=== PATIENT | male | born 1970 | race Caucasian/White ===

== ENCOUNTER 2017-03-31 | Observation (INO) | payer BC, OTHER ==
[2017-03-31] MEDS ORDERED: Sodium Chloride 0.9% 10 ML Syringe FLUSH PRN (00:06)
[2017-03-31] MEDS ORDERED: Famotidine 20 MG/2 ML SDV IVPUSH ONE (00:06)
[2017-03-31] MEDS ORDERED: Alum Hydrox/Mag Hydrox/Simeth 15 ML, Metoclopramide 5 MG, Lidocaine 2% 5 ML PO ONE ×3 (00:06)
[2017-03-31] MEDS ORDERED: Sodium Chloride 0.9% 2.5 ML Syringe FLUSH PRN (00:06)
[2017-03-31] MEDS ORDERED: Aspirin 81 MG Tab.Chew PO ONE (00:06)
[2017-03-31] MEDS ORDERED: Ketorolac 30 MG/ML SDV IVPUSH ONE (00:06)
--- NOTE | 2017-03-31 00:16 | EDM.PDOC ---
<TaqueriaronnaAvtar - Last Filed: 03/31/17 00:11> ED HISTORY OF PRESENT ILLNESS - General Stated Complaint: BACK/CHEST PAIN Time Seen by Provider: 03/31/17 01:02 - Related Data Allergies/ADRs: Allergies Allergy/AdvReac Type Severity Reaction Status Date / Time No Known Allergies Allergy Verified 03/31/17 00:19 Home Meds: Home Meds Bp Med 07/06/16 [History] Past Medical History Cardiovascular History: Reports: Hypertension - Infectious Disease History Infectious Disease History: Reports: MRSA - Past Surgical History Musculoskeletal Surgical History: Reports: Other (see below) Other Musculoskeletal Surgeries/Procedures:: 11 surgeries to left hand after crush injury Social & Family History - Family History Family Medical History: Noncontributory - Tobacco Use Smoking Status *Q: Current Every Day Smoker Years of Tobacco use: 25 Packs/Tins Daily: 1 - Recreational Drug Use Recreational Drug Use: No Course - Vital Signs Last Recorded V/S: Last Vital Signs Temp 37.2 C 03/31/17 00:50 Pulse 78 03/31/17 00:50 Resp 16 03/31/17 00:50 BP 121/84 03/31/17 00:50 Pulse Ox 97 03/31/17 00:50 - Orders/Labs/Meds Orders: Active Orders 24 hr Category Date Time Status Cardiac Monitoring [RC] . DIRECTED Care 03/31/17 00:06 Active EKG Documentation Completion [RC] STAT Care 03/31/17 00:06 Active Chest 2V [CR] Stat Exams 03/31/17 00:06 Ordered AMYLASE [CHEM] Stat Lab 03/31/17 00:25 Received COMPREHENSIVE METABOLIC PN,CMP [CHEM] Stat Lab 03/31/17 00:25 Received LIPASE [CHEM] Stat Lab 03/31/17 00:25 Received Sodium Chloride 0.9% [Saline Flush] Med 03/31/17 00:06 Active 10 ml FLUSH ASDIRECTED PRN Sodium Chloride 0.9% [Saline Flush] Med 03/31/17 00:06 Active 2.5 ml FLUSH ASDIRECTED PRN Saline Lock Insert [OM.PC] Stat Oth 03/31/17 00:06 Ordered Medication Orders Sodium Chloride (Saline Flush) 10 ml FLUSH ASDIRECTED PRN PRN Reason: Keep Vein Open Sodium Chloride (Saline Flush) 2.5 ml FLUSH ASDIRECTED PRN PRN Reason: Keep Vein Open Labs: Laboratory Tests 03/31/17 03/31/17 03/31/17 Range/Units 00:25 00:25 00:25 WBC 11.95 H (4.0-11.0) K/uL RBC 5.06 (4.50-5.90) M/uL Hgb 15.9 (13.0-17.0) g/dL Hct 46.5 (38.0-50.0) % MCV 91.9 (80.0-98.0) fL MCH 31.4 (27.0-32.0) pg MCHC 34.2 (31.0-37.0) g/dL RDW Std Deviation 44.1 (28.0-62.0) fl RDW Coeff of Earl 13 (11.0-15.0) % Plt Count 263 (150-400) K/uL MPV 10.90 (7.40-12.00) fL Neut % (Auto) 72.5 (48.0-80.0) % Lymph % (Auto) 19.7 (16.0-40.0) % Page % (Auto) 6.7 (0.0-15.0) % Eos % (Auto) 0.9 (0.0-7.0) % Baso % (Auto) 0.2 (0.0-1.5) % Neut # (Auto) 8.7 H (1.4-5.7) K/uL Lymph # (Auto) 2.4 (0.6-2.4) K/uL Page # (Auto) 0.8 (0.0-0.8) K/uL Eos # (Auto) 0.1 (0.0-0.7) K/uL Baso # (Auto) 0.0 (0.0-0.1) K/uL Nucleated RBC % 0.0 /100WBC Nucleated RBCs # 0 K/uL INR 1.00 (0.86-1.11) Troponin I < 0.10 (0.0-0.29) NG/ML Meds: Medications Generic Name Dose Route Start Last Admin Trade Name Freq PRN Reason Stop Dose Admin Sodium Chloride 10 ml 03/31/17 00:06 Saline Flush FLUSH ASDIRECTED PRN Keep Vein Open Sodium Chloride 2.5 ml 03/31/17 00:06 Saline Flush FLUSH ASDIRECTED PRN Keep Vein Open Discontinued Medications Generic Name Dose Route Start Last Admin Trade Name Marry PRN Reason Stop Dose Admin Aspirin 324 mg 03/31/17 00:06 03/31/17 00:30 Aspirin PO 03/31/17 00:07 324 mg ONETIME ONE Administration Al Hydroxide/Mg Hydroxide 15 0 ml 03/31/17 00:06 03/31/17 00:49 ml/ Metoclopramide HCl 5 mg/ PO 03/31/17 00:07 1 each Lidocaine HCl 5 ml ONETIME ONE Administration Famotidine 20 mg 03/31/17 00:06 03/31/17 00:43 Pepcid IVPUSH 03/31/17 00:07 20 mg ONETIME ONE Administration Ketorolac Tromethamine 30 mg 03/31/17 00:06 03/31/17 00:28 Toradol IVPUSH 03/31/17 00:07 30 mg ONETIME ONE Administration Lidocaine HCl Confirm 03/31/17 00:34 Xylocaine 2% Viscous Administered 03/31/17 00:35 Dose 15 ml .ROUTE .STK-MED ONE Morphine Sulfate 2 mg 03/31/17 00:21 03/31/17 00:41 Morphine IVPUSH 03/31/17 00:22 2 mg ONETIME ONE Administration Nitroglycerin 0.4 mg 03/31/17 00:17 03/31/17 00:32 Nitrostat SL 03/31/17 00:28 0.4 mg Q5M PRN Administration Chest Pain Ondansetron HCl 4 mg 03/31/17 00:21 03/31/17 00:37 Zofran IVPUSH 03/31/17 00:22 4 mg ONETIME ONE Administration Departure - Departure Disposition: Refer to Observation Clinical Impression: Chest pain <Jonathan Smalls - Last Filed: 03/31/17 01:03> ED HISTORY OF PRESENT ILLNESS - History of Present Illness INITIAL COMMENTS - FREE TEXT/NARRATIVE: HISTORY AND PHYSICAL: History of present illness: Patient 46-year-old white male that since her chest and upper back pain x2 days he states that the shortness of breath he denies palpitations nausea vomiting or diaphoresis. Review of systems: As per history of present illness and below otherwise all systems reviewed and negative. Past medical history: As per history of present illness and as reviewed below otherwise noncontributory. Surgical history: As per history of present illness and as reviewed below otherwise noncontributory. Social history: No reported history of drug or alcohol abuse. Family history: As per history of present illness and as reviewed below otherwise noncontributory. Physical exam: HEENT: Atraumatic, normocephalic, pupils reactive, negative for conjunctival pallor or scleral icterus, mucous membranes moist, throat clear, neck supple, nontender, trachea midline. Lungs: Clear to auscultation, breath sounds equal bilaterally, chest nontender. Heart: S1S2, regular, negative for clicks, rubs, or JVD. Abdomen: Soft, nondistended, nontender. Negative for masses or hepatosplenomegaly. Negative for costovertebral tenderness. Pelvis: Stable nontender. Genitourinary: Deferred. Rectal: Deferred. Extremities: Atraumatic, negative for cords or calf pain. Neurovascular unremarkable. Neuro: Awake, alert, oriented. Cranial nerves II through XII unremarkable. Cerebellum unremarkable. Motor and sensory unremarkable throughout. Exam nonfocal. Diagnostics: CBC CMP troponin PT INR chest x-ray EKG Therapeutics: IV O2 monitor aspirin 324 mg by mouth nitroglycerin glycerin as directed Impression: #1 chest pain Definitive disposition and diagnosis as appropriate pending reevaluation and review of above. ED ROS GENERAL - Review of Systems Review Of Systems: ROS reveals no pertinent complaints other than HPI. ED EXAM, GENERAL - Physical Exam Exam: See Below (See dictated) Departure - Departure Time of Disposition: 01:02 Condition: good
[2017-03-31] MEDS ORDERED: Ondansetron 4 MG/2 ML SDV IVPUSH ONE (00:21)
[2017-03-31] MEDS ORDERED: Morphine 2 MG/ML Syringe IVPUSH ONE (00:21)
[2017-03-31] MEDS: Nitroglycerin 0.4 MG Tab.SL SL PRN ×3 (00:21→00:32)
[2017-03-31] MEDS ORDERED: Lidocaine 2% Viscous Solution 15 ML Cup ONE (00:34)
[2017-03-31 01:05] LABS: CHLORIDE,CL 107 mmol/L (98-110); SODIUM,NA 138 mmol/L (136-146)
[2017-03-31] MEDS ORDERED: Metoprolol Tartrate 25 MG Tab PO SCH (09:00)
--- NOTE | 2017-03-31 09:31 | PCM.HP ---
H&P History of Present Illness - General Date of Service: 03/31/17 Admit Problem/Dx: Admission Diagnosis/Problem Admission Diagnosis/Problem Chest pain Source of Information: Patient History Limitations: Reports: No limitations - History of Present Illness Initial Comments - Free Text/Narative: recent onset centrral chest pain some what pleuritic in character, occasionally radiating to R jaw accompanied by nausea Not exertional, feels better to move around, worse sitting in truck cab when he also has low back pain Onset of Symptoms: Reports: gradual Duration of Symptoms: Reports: Minutes:, Getting worse Location: Reports: chest Severity: severe Improves with: Reports: Movement Worsens with: Reports: Immobilization Bilateral Chest Pain Score (Numeric/FACES): 4 Lower Back Pain Score (Numeric/FACES): 15 - Related Data Allergies/Adverse Reactions: Allergies Allergy/AdvReac Type Severity Reaction Status Date / Time No Known Allergies Allergy Verified 03/31/17 00:19 Home Medications: Home Meds amLODIPine [Norvasc] 5 mg PO DAILY 03/31/17 [History] Past Medical History - Past Health History Medical/Surgical History: Denies Medical/Surgical History HEENT History: Reports: Otitis media Cardiovascular History: Reports: Hypertension - Infectious Disease History Infectious Disease History: Reports: Chicken pox, MRSA - Past Surgical History HEENT Surgical History: Reports: None Cardiovascular Surgical History: Reports: None Musculoskeletal Surgical History: Reports: Other (see below) Other Musculoskeletal Surgeries/Procedures:: 11 surgeries to left hand after crush injury Dermatological Surgical History: Reports: Skin graft Social & Family History - Family History Family Medical History: Noncontributory Oncologic: Reports: Colon Other Oncologic Family History: father qge 64 - Tobacco Use Smoking Status *Q: Current Every Day Smoker Years of Tobacco use: 20 Packs/Tins Daily: 1 Second Hand Smoke Exposure: Yes - Caffeine Use Caffeine Use: Reports: Coffee, Soda Caffeine Use Comment: 2-3 bottles of soda per day, 24oz coffee per day - Alcohol Use Days Per Week of Alcohol Use Comment: sporadic use with Emulisian YEVVO Alcohol Use in Last Twelve Months: Yes - Recreational Drug Use Recreational Drug Use: No H&P Review of Systems - Review of Systems: Review Of Systems: See Below General: Reports: fatigue (working a lot, sleep deprived) Pulmonary: Reports: No Symptoms Cardiovascular: Reports: chest pain (atypical, non-exertional) Gastrointestinal: Reports: Nausea Genitourinary: Reports: no symptoms Musculoskeletal: Reports: no symptoms Skin: Reports: no symptoms Psychiatric: Reports: depression Exam - Exam Exam: See Below - Vital Signs Vital Signs: Last Vital Signs Temp 36.8 C 03/31/17 07:39 Pulse 75 03/31/17 08:32 Resp 20 03/31/17 07:39 BP 117/75 03/31/17 08:32 Pulse Ox 95 03/31/17 07:39 Weight: 79.6 kg - Exam General: mild distress Neck: supple Lungs: Clear to auscultation Cardiovascular: regular rate, regular rhythm Abdomen: normal bowel sounds (Male) Exam: Deferred Rectal (Males) Exam: Deferred Back Exam: normal inspection, paraspinal tenderness (low back, sacroiliac area) Extremities: other (scarring L hand with fusion 4th finger) Skin: warm, dry Neuro Extensive - Mental Status: alert, oriented x3 Psychiatric: depressed - Patient Data Lab Results last 24 hrs: Laboratory Results - last 24 hr 03/31/17 Range/Units 06:40 Troponin I < 0.10 (0.0-0.29) NG/ML Result Diagrams: 03/31/17 00:25 03/31/17 00:25 *Q Meaningful Use (ADM) - VTE *Q VTE Criteria *Q: - Stroke *Q Stroke Criteria *Q: - AMI *Q AMI Criteria *Q: - Problem List (1) Back pain SNOMED Code(s): 819296819 ICD Code: M54.9 - DORSALGIA, UNSPECIFIED Status: Acute Current Visit: Yes Problem List Initiated/Reviewed/Updated: Yes Orders Last 24hrs: Active Orders 24 hr Category Date Time Status EKG 12 Lead [EKG Documentation Completion] [RC] AM Care 03/31/17 07:00 Active EKG Documentation Completion [RC] STAT Care 03/31/17 01:04 Active Telemetry Monitoring [Cardiac Monitoring] [RC] Q8H Care 03/31/17 02:48 Active Heart Healthy Diet [DIET] Diet 03/31/17 Breakfast Active LIPID PANEL [CHEM] Routine Lab 03/31/17 06:40 Received TROPONIN I [CHEM] Q6H Lab 03/31/17 12:25 Ordered Aspirin Med 03/31/17 12:00 Active 81 mg PO DAILY Metoprolol Tartrate [Lopressor] Med 03/31/17 09:00 Active 12.5 mg PO BID Medication Orders Aspirin (Aspirin) 81 mg PO DAILY [facility] Metoprolol Tartrate (Lopressor) 12.5 mg PO BID [facility] Last Admin: 03/31/17 08:32 Dose: 12.5 mg Sodium Chloride (Saline Flush) 10 ml FLUSH ASDIRECTED PRN PRN Reason: Keep Vein Open Last Admin: 03/31/17 01:25 Dose: 10 ml Sodium Chloride (Saline Flush) 2.5 ml FLUSH ASDIRECTED PRN PRN Reason: Keep Vein Open Last Admin: 03/31/17 01:25 Dose: 2.5 ml Assessment/Plan Comment:: atypical, non exertional chest pain though ECG does show some inferolateral t wave changes risk factors hypertension, smoking unknown lipid status Awaiting last troponin will give toradol for back pain, mobilize, recheck ECG
[2017-03-31] MEDS ORDERED: Ketorolac 15 MG/ML SDV IVPUSH PRN (09:37)
[2017-03-31] MEDS ORDERED: amLODIPine 5 MG Tab PO SCH (10:00)
[2017-03-31] MEDS ORDERED: Nicotine 14 MG/24 Hr Patch TRDERM SCH (10:45)
[2017-03-31] MEDS ORDERED: Aspirin 81 MG Tab.Chew PO SCH (12:00)
--- NOTE | 2017-03-31 14:16 | CR ---
EXAM DATE: 03/31/17 PATIENT'S AGE: 46 Patient: BRITTANI ANTUNEZ Facility: [place], [place] Site . Site : [id number] Study: XRay Chest [id number]/1/2017 1:23:40 AM Ordering Physician: Doctor Menard Final Report: INDICATION: Pleuritic chest pain, back pain TECHNIQUE: Chest 2 views. COMPARISON: None FINDINGS: Cardiovascular and mediastinum: Heart size and vasculature are normal in caliber and appearance. Mediastinum is within normal limits. Lungs and pleural spaces: Lungs are clear. No sign of infiltrate or mass. No sign of pleural effusion. No pneumothorax. Bones and soft tissues: No significant findings. IMPRESSION: No sign of acute disease. Dictated by Alyson Beníetz MD @ Mar 31 2017 1:25AM (Electronic Signature) Report Signed by Proxy. JANAE
--- NOTE | 2017-03-31 15:46 | PCM.SN ---
- Free Text/Narrative Note: third troponin undetectable and ECG tracingreturned to normal Ptm has mildly unfavorable lipids with low HDL Still having chest and low back pain, little help from Toradol. Nicotine patch was effective however Will discharge
--- NOTE | 2017-03-31 15:53 | PCM.DCSUM1 ---
Discharge Summary - Discharge Data Discharge Date: 03/31/17 Discharge Disposition: Home, Self-Care 01 Condition: Good - Discharge Diagnosis/Problem(s) (1) Back pain SNOMED Code(s): 602185067 ICD Code: M54.9 - DORSALGIA, UNSPECIFIED Status: Acute Current Visit: Yes Qualifiers: Back pain location: low back pain (2) Chest pain SNOMED Code(s): 78829676 ICD Code: R07.9 - CHEST PAIN, UNSPECIFIED Status: Acute Current Visit: Yes Qualifiers: Chest pain type: chest pain on breathing Qualified Code(s): R07.1 - Chest pain on breathing - Patient Instructions Diet: Heart Healthy Diet Activity: As Tolerated - Discharge Plan Home Medications: Home Meds amLODIPine [Norvasc] 5 mg PO DAILY 03/31/17 [History] Forms: ED Department Discharge Referrals: PCP,None [Primary Care Provider] - - Discharge Summary/Plan Comment DC Time >30 min.: No - General Info Date of Service: 03/31/17 - Review of Systems General: Reports: No Symptoms HEENT: Reports: no symptoms Pulmonary: Reports: no symptoms Cardiovascular: Reports: Chest Pain (basically unchanged) Gastrointestinal: Reports: No symptoms Genitourinary: Reports: no symptoms Musculoskeletal: Reports: back pain (sacroileitis) - Patient Data Vitals - Most Recent: Last Vital Signs Temp 36.8 C 03/31/17 11:40 Pulse 64 03/31/17 11:40 Resp 22 H 03/31/17 11:40 BP 136/88 03/31/17 11:40 Pulse Ox 97 03/31/17 11:40 Weight - Most Recent: 79.6 kg Lab Results - Last 24 hrs: Laboratory Results - last 24 hr 03/31/17 03/31/17 03/31/17 Range/Units 06:40 06:40 12:30 Troponin I < 0.10 < 0.10 (0.0-0.29) NG/ML Triglycerides 80 (10-190) mg/dL Cholesterol 121 L (131-240) mg/dL LDL Cholesterol, Calc 75 (60-180) mg/dL VLDL Cholesterol 16 (5-55) mg/dL HDL Cholesterol 30 L (40-80) mg/dL Cholesterol/HDL Ratio 4.0 (3.3-6.0) Med Orders - Current: Current Medications Amlodipine Besylate (Norvasc) 5 mg PO DAILY [facility] Last Admin: 03/31/17 10:19 Dose: 5 mg Aspirin (Aspirin) 81 mg PO DAILY [facility] Last Admin: 03/31/17 12:18 Dose: 81 mg Ketorolac Tromethamine (Toradol) 30 mg IVPUSH Q8H PRN PRN Reason: Pain (moderate 4-6) Stop: 04/05/17 09:37 Last Admin: 03/31/17 10:19 Dose: 30 mg Metoprolol Tartrate (Lopressor) 12.5 mg PO BID [facility] Last Admin: 03/31/17 08:32 Dose: 12.5 mg Nicotine (Habitrol) 14 mg TRDERM DAILY [facility] Last Admin: 03/31/17 11:08 Dose: 14 mg Sodium Chloride (Saline Flush) 10 ml FLUSH ASDIRECTED PRN PRN Reason: Keep Vein Open Last Admin: 03/31/17 01:25 Dose: 10 ml Sodium Chloride (Saline Flush) 2.5 ml FLUSH ASDIRECTED PRN PRN Reason: Keep Vein Open Last Admin: 03/31/17 01:25 Dose: 2.5 ml Discontinued Medications Aspirin (Aspirin) 324 mg PO ONETIME ONE Stop: 03/31/17 00:07 Last Admin: 03/31/17 00:30 Dose: 324 mg Al Hydroxide/Mg Hydroxide 15 ml/ Metoclopramide HCl 5 mg/Lidocaine HCl 5 ml 0 ml PO ONETIME ONE Stop: 03/31/17 00:07 Last Admin: 03/31/17 00:49 Dose: 1 each Famotidine (Pepcid) 20 mg IVPUSH ONETIME ONE Stop: 03/31/17 00:07 Last Admin: 03/31/17 00:43 Dose: 20 mg Ketorolac Tromethamine (Toradol) 30 mg IVPUSH ONETIME ONE Stop: 03/31/17 00:07 Last Admin: 03/31/17 00:28 Dose: 30 mg Lidocaine HCl (Xylocaine 2% Viscous) Confirm Administered Dose 15 ml .ROUTE .STK -MED ONE Stop: 03/31/17 00:35 Last Admin: 03/31/17 04:04 Dose: Not Given Morphine Sulfate (Morphine) 2 mg IVPUSH ONETIME ONE Stop: 03/31/17 00:22 Last Admin: 03/31/17 00:41 Dose: 2 mg Nitroglycerin (Nitrostat) 0.4 mg SL Q5M PRN PRN Reason: Chest Pain Stop: 03/31/17 00:28 Last Admin: 03/31/17 00:32 Dose: 0.4 mg Ondansetron HCl (Zofran) 4 mg IVPUSH ONETIME ONE Stop: 03/31/17 00:22 Last Admin: 03/31/17 00:37 Dose: 4 mg - Exam General: Reports: alert Neck: Reports: supple Lungs: Reports: Clear to auscultation Cardiovascular: Reports: Regular Rate. Denies: Rubs Abdomen: Reports: bowel sounds present (Male) Exam: Deferred Rectal (Males) Exam: Deferred Extremities: Reports: no edema EKG INTERPRETATION Rhythm: NSR [place]: normal P-wave: present QRS: normal ST-T: normal QT: normal EKG Interpretation Comments: the mild inferolateral t wave inversions seen this am have reverted to normal *Q Meaningful Use (DIS) - VTE *Q VTE Criteria *Q: - Stroke *Q Stroke Criteria *Q: - AMI *Q AMI Criteria *Q:
[2017-03-31 16:00] VITALS: BP 144/94
== END 2017-03-31 16:45 | disposition home or self-care (01) ==
LOC: MW.ED → MW.MS 01:03
PROVIDERS: ADMIT Internal Medicine; ATTEND Internal Medicine
DX: R07.1 Chest pain on breathing (principal); M54.9 Dorsalgia, unspecified; I10 Essential (primary) hypertension; F17.210 Nicotine dependence, cigarettes, uncomplicated; Z86.14 Personal history of Methicillin resistant Staphylococcus aureus infection; Z79.899 Other long term (current) drug therapy; Z98.890 Other specified postprocedural states
CPT/HCPCS: 36415; 71020; 80053; 80061; 82150; 83690; 84484; 85025; 85610; 93005; 96374; 96375; 96376; 99285; A9270; G0378; J1885; J2270; J2405; 99283